=== PATIENT | male | born 1985 | race Caucasian/White ===

== ENCOUNTER 2023-04-08 14:19 | Emergency (ER) | payer OTHER ==
[2023-04-08 14:36] VITALS: BP 122/79; PULSE 84; RESP 17; TEMP 98.3; BMI 28.8
== END 2023-04-08 15:39 | disposition home or self-care (01) ==
LOC: JERFT 14:19
DX: M25.512 Pain in left shoulder (principal); S43.005A Unspecified dislocation of left shoulder joint, initial encounter; Y04.0XXA Assault by unarmed brawl or fight, initial encounter; Y92.219 Unspecified school as the place of occurrence of the external cause
CPT/HCPCS: 73030-TC-LT-FY; 99283-25